=== PATIENT | female | born 2000 | race Caucasian/White ===

== ENCOUNTER 2023-09-20 11:11 | Outpatient (CLI) | payer OTHER, SELFPAY ==
[2023-09-20 11:28] VITALS: BP 127/79; PULSE 100; PULSE 95; TEMP 36.8; O2SAT 100
[2023-09-20 12:24] LABS: Mucous, Urine 0 SEEN /hpf (<or=2+)
[2023-09-20 12:28] LABS: Color, Urine Yellow (Yellow); Glucose, Dipstick Normal (Normal); Ketone-Dipstick Negative (Negative); Leukocyte Esterase-Dipstick Negative /ul (Negative); Nitrite-Dipstick Negative (Negative); Occult Blood-Urine Negative /ul (Negative); Protein-Dipstick Negative (Negative); Urine Bilirubin Dipstick Negative (Negative); Urine Clarity Sl. Cloudy (Clear); Urine Urobilinogen Normal (Normal)
[2023-09-20 12:36] LABS: Bacteria RARE /hpf (None Seen); Red Blood Cells-Urine 0-5 SEEN /hpf (0-5); Squamous Epithelial Cells - UA 0-5 SEEN /hpf (5-10); White Blood Cells 0-5 SEEN /hpf (0-5)
--- NOTE | 2023-09-20 17:51 | OB.TRI.NOTE ---
HPI - General HPI Narrative JAKE SAENZ, is a 23 F at 22.3 weeks gestation who presents to triage with pelvic pressure, lower back pain, and decreased movement. She resides in [place] and is here in town visiting family. Reports has been uneventful. PFSH PFSH Home Medications [id number] 400 mcg-om3 35 mg-dha 25 mg-epa 5 mg-fish oil chewable tablet tab PO 09/20/23 [History Last Taken 09/19/23] doxylamine 20 mg-pyridoxine 20 mg tablet,immediate and delayed release ([place]) 1 tab PO DAILY 09/20/23 [History Last Taken 09/19/23] Allergy/AdvReac Type Severity Reaction Status Date / Time No Known Allergies Allergy Verified 09/20/23 11:38 ROS Eyes Eyes: Denies blurry vision Cardiovascular Cardiovascular: Reports none; Denies chest pain at rest, chest pain with activity or dizziness Respiratory/Chest Respiratory/Chest: Denies cough or dyspnea Gastrointestinal Gastrointestinal: Reports none and other; Denies diarrhea or vomiting Genitourinary Genitourinary: Denies dysuria Musculoskeletal Musculoskeletal: Reports none Integumentary Integumentary: Reports none; Denies rash Neurologic Neurologic: Denies dizziness, headache(s) or other visual disturbances Psychiatric Psychiatric: Reports none Physical Exam Const alert and no apparent distress General Appearance: cooperative Orientation / Consciousness: awake Exam Limitations: no limitations HEENT normocephalic Eyes General Eye: normal appearance of both eyes Neck full ROM Chest inspection of chest normal Resp normal respiratory effort and normal air movement Effort and Inspection: symmetric chest movement Auscultation: clear to auscultation bilaterally Cardio regular rate GI soft to palpation, non-tender and non-distended Inspection: and other Back/Spine normal ROM Extremity full ROM, normal capillary refill and no calf tenderness Skin no rashes or lesions noted Neuro oriented x3 and CN's II-XII intact bilaterally Psych mental status grossly normal Assessment & Plan (1) 22 weeks gestation of : (2) Pelvic pressure in : (3) Lower back pain: (4) Decreased movement: PLAN: Plan FHT 140 bpm via doppler UA- negative CE - closed/thick/high Reassurance provided D/C home and will follow up with OB
== END 2023-09-20 13:07 | disposition home or self-care (01) ==
LOC: WPOUT 11:25 → WP 11:26
PROVIDERS: Advanced Practice Midwife; Visit Provider Obstetrics & Gynecology
DX: O99.891 Other specified diseases and conditions complicating pregnancy (principal); O36.8120 Decreased fetal movements, second trimester, not applicable or unspecified; M54.50 Low back pain, unspecified; Z3A.22 22 weeks gestation of pregnancy
CPT/HCPCS: 81001; 99221; G0378